=== PATIENT | male | born 1975 | race Caucasian/White ===

== ENCOUNTER → 2023-06-14 | Outpatient (CLI) | payer OTHER ==
--- NOTE | 2023-06-14 14:39 | FL ---
INDICATION: Patient age:Male; 47 years old; Reason for study: M25.551 PAIN IN RIGHT HIP; PHH. COMPARISON: None. TECHNIQUE/PROCEDURE: This study was performed by myself. After the procedure was explained and informed consent was obtained from the patient, the patient was prepped and draped in the usual sterile fashion. 1% Lidocaine was used as local anesthetic using a 2 5 gauge needle. A 22 gauge needle was then advanced into the right hip joint using fluoroscopic raymond nce. Approximately 15 cc of contrast was injected into the joint (an admixture of gadolinium, Isovue 370, and sterile saline). The needle was then removed and a Band-Aid was applied. FLUOROSCOPY TIME: 23 seconds FLUOROSCOPIC IMAGES: 2 images. Total DAP cannot be calculated due to how old the machine is. The patient tolerated procedure well. The patient was then sent to the MR unit for MRI exam. FINDINGS: Contrast was seen filling the right hip joint initially. Small amount of extracapsular con trast was noted. The hip joint was normally aligned. Osseous structures appear within normal limits. IMPRESSION: Successful right hip arthrogram. MRI right hip report to follow.
== END | disposition home or self-care (01) ==
LOC: RADFLMAIN 12:55
PROVIDERS: ATTEND Social Worker Clinical
DX: M25.551 Pain in right hip (principal)
CPT/HCPCS: 27093; 73525; 73722; A9585; Q9967

== ENCOUNTER 2023-07-02 09:19 | Emergency (ER) | payer OTHER ==
[2023-07-02 10:02] VITALS: BP 146/100; PULSE 91; RESP 18; TEMP 98
--- NOTE | 2023-07-02 10:28 | ED ---
Neck Injury/Pain HPI - General Mode of arrival: ambulatory Limitations: no limitations <Paola Najera - Last Filed: 07/02/23 10:25> - General Source: RN notes reviewed <Cortney Moreno - Last Filed: 07/02/23 15:45> - General Chief Complaint: Neck Pain/Injury Stated Complaint: right arm pain and chest pain Time Seen by Provider: 07/02/23 10:27 - History of Present Illness Initial Comments: Patient is a 47-year-old male presented ER with chief complaint of cervical neck plane and right arm pain. Patient denies any known trauma/injuries. Reports shooting pain and weakness. (Paola Najera) This is a 47-year-old male with no significant past medical history who presents the emergency department with a chief complaint of neck pain. Patient reports pain that is charts in his upper neck that radiates down his right arm. He denies any injury or trauma. He does report that the sensation feels like pins and needles. He does feel like his right side is weaker than his left. He does not take tcar-zhz-nmdupjx remedies as he feels that it does not work for him. Denies previous injury. (Cortney Moreno) - Related Data Home Medications Medication Instructions Recorded Confirmed Cetirizine HCl [Zyrtec] 10 mg PO BID 07/02/23 07/02/23 Esomeprazole Magnesium [NexIUM] 40 mg PO BID 07/02/23 07/02/23 Glucosam/Francisco-Msm1/C/Yong/Bosw 1 tab PO BID 07/02/23 07/02/23 [Ukskbypxnne-Libwioyokcj-QMF Tb] Pregabalin [Lyrica] 150 mg PO BID 07/02/23 07/02/23 calcium polycarbophiL [Fibercon] 625 mg PO BID 07/02/23 07/02/23 Previous Rx's Medication Instructions Recorded Cyclobenzaprine [Flexeril] 10 mg PO TID PRN #15 tab 07/02/23 Allergies Allergy/AdvReac Type Severity Reaction Status Date / Time naproxen Allergy Rash/Hives Verified 07/02/23 13:44 Review of Systems ROS Other: All systems not noted in ROS Statement are negative. <Paola Najera - Last Filed: 07/02/23 10:25> ROS Other: All systems not noted in ROS Statement are negative. <Cortney Moreno - Last Filed: 07/02/23 15:45> ROS Statement: Those systems with pertinent positive or pertinent negative responses have been documented in the HPI. Past Medical History Past Medical History: No Reported History History of Any Multi-Drug Resistant Organisms: None Reported Additional Past Surgical History / Comment(s): Vesecatomy Past Psychological History: No Psychological Hx Reported Smoking Status: Current every day smoker Past Alcohol Use History: None Reported Past Drug Use History: None Reported <Paola Najera - Last Filed: 07/02/23 10:25> General Exam Limitations: no limitations <Paola Najera - Last Filed: 07/02/23 10:25> <Cortney Moreno - Last Filed: 07/02/23 15:45> - General Exam Comments Initial Comments: Visual Physical Exam Vital signs reviewed General: Well-appearing, nontoxic, no acute distress. Head: Normocephalic, atraumatic Eyes: PERRLA, EOMI ENT: Airway patent Chest: Nonlabored breathing Skin: No visual rash, normal skin tone Neuro: Alert and oriented 3 Musculoskeletal: No gross abnormalities (Paola Najera) General: Alert, in no acute distress Head: atraumatic normocephalic. Eyes PERRL, EOMI intact, mucous membranes moist, slight abrasion to cervical spine area. No step-off. Respiratory: Lungs clear to auscultation bilaterally Cardiovascular: Heart rate regular rhythm Abdominal: Soft without guarding or rebound Extremities: Normal inspection with full range of motion and normal capillary re fill. When directed strength 3/ 5. 5/ 5 strength when distracted. Sensation intact. 2+ radial pulses. Distal neurovascularly intact. Neuroogic: alert and oriented 3, CN II-XII intact, able to ambulate with steady gait Skin: warm dry and intact with normal color (Cortney Moreno) Course Vital Signs 07/02/23 09:35 Temperature 98 F Pulse Rate 91 Respiratory 18 Rate Blood Pressure 146/100 O2 Sat by Pulse 97 Oximetry Medical Decision Making <Paola Najera - Last Filed: 07/02/23 10:25> <Cortney Moreno - Last Filed: 07/02/23 15:45> - Medical Decision Making I performed the quick note portion of the exam. Electronically signed by Paola Najera PA-C (Paola Najera) Was pt. sent in by a medical professional or institution ([facility], [facility], urgent care, hospital, or halfway...) When possible be specific @ -[No] Did you speak to anyone other than the patient for history (EMS, parent, family, police, friend...)? What history was obtained from this source @ -[No] Did you review nursing and triage notes (agree or disagree)? Why? @ -[I reviewed and agree with nursing and triage notes] Were old charts reviewed (outside hosp., previous admission, EMS record, old EKG, old radiological studies, urgent care reports/EKG's, halfway records)? Report findings @ -[No old charts were reviewed] Differential Diagnosis (chest pain, altered mental status, abdominal pain women, abdominal pain men, vaginal bleeding, weakness, fever, dyspnea, syncope, headache, dizziness, GI bleed, back pain, seizure, CVA, palpatations, mental health, musculoskeletal)? @ -[not applicable] EKG interpreted by me (3pts min.). @ -[As above] X-rays interpreted by me (1pt min.). @ -Cervical spine x-ray and right shoulder x-ray negative for any evidence of fracture or dislocation. There is mild degeneration of the disc between C5 and C6 CT interpreted by me (1pt min.). @ -[None done] U/S interpreted by me (1pt. min.). @ -[None done] What testing was considered but not performed or refused? (CT, X-rays, U/S, labs)? Why? @ -[None] What meds were considered but not given or refused? Why? @ -[None] Did you discuss the management of the patient with other professionals ( professionals i.e. [facility], [facility], lab, RT, psych nurse, social research assistant, boat worker, teacher, aoc director intelligence officer, telephonic nurse case manager)? Give summary @ -[No] Was smoking cessation discussed for >3mins.? @ -[No] Was critical care preformed (if so, how long)? @ -[No] Were there social determinants of health that impacted care today? How? (Homelessness, low income, unemployed, alcoholism, drug addiction, transportation, low edu. Level, literacy, decrease access to med. care, fci, rehab)? @ -[No] Was there de-escalation of care discussed even if they declined (Discuss DNR or withdrawal of care, Hospice)? DNR status @ -[No] What co-morbidities impacted this encounter? (DM, HTN, Smoking, COPD, CAD, Cancer, CVA, ARF, Chemo, Hep., AIDS, mental health diagnosis, sleep apnea, morbid obesity)? @ -[None] Was patient admitted / discharged? Hospital course, mention meds given and route, prescriptions, significant lab abnormalities, going to OR and other pertinent info. @ Discharged. 47-year-old male who presents the emergency department with neck pain. She had a history and physical exam performed. Physical exam essentially unremarkable. There is a small area of skin breakdown around C7 otherwise unremarkable. Full range of motion. No step-off. Patient had imaging which was negative for fracture. Patient was given Toradol patch and Flexeril with symptomatic improvement. Return precautions were discussed at length. Patient discharged in stable condition. Case discussed with Dr. Sterling [facility] who agrees with plan of care Undiagnosed new problem with uncertain prognosis? @ -[No] Drug Therapy requiring intensive monitoring for toxicity (Heparin, Nitro, Insulin, Cardizem)? @ -[No] Were any procedures done? @ -[No] Diagnosis/symptom? @ -[default] Acute, or Chronic, or Acute on Chronic? @ -Neck Pain Uncomplicated (without systemic symptoms) or Complicated (systemic symptoms)? @ -Uncomplicated Side effects of treatment? @ -[No] Exacerbation, Progression, or Severe Exacerbation? @ -[No] Poses a threat to life or bodily function? How? (Chest pain, [place], [place], pneumonia, PE, COPD, DKA, ARF, appy, cholecystitis, CVA, Diverticulitis, Homicidal, Suicidal, threat to staff... and all critical care pts) @ -Low likelihood (Cortney Moreno) Disposition <Paola Najera - Last Filed: 07/02/23 10:25> Is patient prescribed a controlled substance at d/c from ED?: No Time of Disposition: 13:43 <Cortney Moreno - Last Filed: 07/02/23 15:45> Clinical Impression: Strain of neck muscle Disposition: HOME SELF-CARE Condition: Stable Instructions (If sedation given, give patient instructions): Cervical Strain (ED) Additional Instructions: Monitor symptoms closely Please return to the nearest emergency department if worsening symptoms Prescriptions: Cyclobenzaprine [Flexeril] 10 mg PO TID PRN #15 tab PRN Reason: Muscle Spasm Referrals: [facility] [Primary Care Provider] - 1-2 days
--- NOTE | 2023-07-02 10:57 | XR ---
EXAMINATION TYPE: XR cervical spine 6 views comp, XR shoulder complete 3 views RT DATE OF EXAM: 07/02/2023 COMPARISON: None HISTORY: 47-year-old male with neck pain radiating down into the right arm FINDINGS: Cervical spine: No predental space widening or prevertebral soft tissue swelling. Mild degenerative changes mid to lo wer cervical spine especially C5-C6. Straightening of the normal cervical lordosis but with preserved alignment. Normal odontoid view. No significant bony neuroforaminal narrowing identified on the obli que views. Right shoulder: AC joint appears congruent and intact. Subacromial space is preserved. No acute fracture, subluxation , dislocation. IMPRESSION: 1. Cervical spine: Mild spondylotic changes especially C5-C6. No significant bony neuroforaminal narr owing identified. Thickening of the normal cervical lordosis could be positional or due to muscle spa sm. 2. Right shoulder: No acute osseous abnormality seen.
[2023-07-02] MEDS ORDERED: CYCLOBENZAPRINE 10 MG TAB PO STA (12:07)
[2023-07-02] MEDS: LIDOCAINE 5% PATCH TOPICAL SCH ×2 (12:19→14:01)
[2023-07-02] MEDS ORDERED: LIDOCAINE 5% PATCH TOPICAL SCH (14:00)
== END 2023-07-02 14:06 | disposition home or self-care (01) ==
LOC: EC 09:19
DX: S16.1XXA Strain of muscle, fascia and tendon at neck level, initial encounter (principal); F17.200 Nicotine dependence, unspecified, uncomplicated; X58.XXXA Exposure to other specified factors, initial encounter
CPT/HCPCS: 72050; 99283

== ENCOUNTER → 2023-07-26 | Outpatient (CLI) | payer OTHER ==
--- NOTE | 2023-07-26 07:45 | MR ---
EXAMINATION TYPE: MR cervical spine wo con DATE OF EXAM: 07/26/2023 6:40 AM CLINICAL INDICATION:Male, 47 years old with history of M54.2 CERVICALGIA; PHH, Neck pain, lower cervi remington and upper thoracic. Headaches, BUE radiculopathy. COMPARISON: 07/02/2023.. TECHNIQUE: Multi planar, multi sequence imaging was performed utilizing: T1-weighted, T2-weighted, an d turbo inversion recovery imaging of the cervical spine. IV Contrast: cc (none if empty) FINDINGS: Alignment: The cervical vertebral bodies have preserved heights. Alignment is within normal limits gi alejandra patient positioning. Bones: Bone signal is within normal limits. No abnormal bone marrow edema on inversion recovery seque nces. Cord: The spinal cord is unremarkable with regards to their signal intensity and morphology. Discs: Multilevel disc desiccation is present. C2-C3: No significant disc pathology. The spinal canal is patent. No neural foraminal stenosis. C3-C4: No significant disc pathology. The spinal canal is patent. Bilateral facet and uncovertebral joint arthropathy are present with mild right neural foraminal stenosis. The left neural foramen is p atent. C4-C5: No significant disc pathology. The spinal canal is patent. Bilateral facet and uncovertebral joint arthropathy are present with moderate mild left neural foraminal stenosis. C5-C6: No significant disc pathology. The spinal canal is patent. No neural foraminal stenosis. C6-C7: No significant disc pathology. The spinal canal is patent. Bilateral facet and uncovertebral joint arthropathy are present with mild bilateral neural foraminal stenosis. C7-T1: No significant disc pathology. The spinal canal is patent. No neural foraminal stenosis. Other: None. IMPRESSION: 1. No evidence for disc herniation or significant spinal canal stenosis. 2. Mild disc degeneration with associated osteoarthritic changes.
== END | disposition home or self-care (01) ==
LOC: RADMRIMAIN 05:58
PROVIDERS: ATTEND Social Worker Clinical
DX: M50.10 Cervical disc disorder with radiculopathy, unspecified cervical region (principal); M47.22 Other spondylosis with radiculopathy, cervical region
CPT/HCPCS: 72141

== ENCOUNTER → 2023-10-07 | Outpatient (CLI) | payer OTHER ==
--- NOTE | 2023-10-07 09:43 | MR ---
EXAMINATION TYPE: MR lumbar spine wo con DATE OF EXAM: 10/07/2023 COMPARISON: NONE HISTORY: Low back pain into valentin lower extremities, urinary urgency TECHNIQUE: T1 and T2 axial and sagittal images of the lumbar spine are submitted. FINDINGS: There is no abnormal signal seen within the visualized spinal cord or paraspinal soft tissu es. Mild left adrenal gland nodularity to small characterize likely bases At L1-2 there is no evidence of degenerative disc disease, disc herniation, canal stenosis, or forami nal encroachment. At L2-3 there is no evidence of degenerative disc disease, disc herniation, canal stenosis, or forami nal encroachment At L3-4 there is no evidence of degenerative disc disease, disc herniation, canal stenosis, or forami nal encroachment At L4-5 there is mild disc desiccation. No discrete herniation or canal stenosis. Mild hypertrophic c hange since very minimal central disc bulging. At L5-S1 there is no evidence of degenerative disc disease, disc herniation, canal stenosis, or usman inal encroachment IMPRESSION: 1. Minimal disc bulging at L4-L5. No significant degenerative disc disease, canal stenosis, or forami nal encroachment.
== END | disposition home or self-care (01) ==
LOC: RADMRIMAIN 08:28
DX: M51.36 Other intervertebral disc degeneration, lumbar region (principal); R39.15 Urgency of urination
CPT/HCPCS: 72148

== ENCOUNTER → 2024-01-12 | Day surgery (SDC) | payer OTHER ==
[~2024-01-12] MED LIST: ONDANSETRON 4 MG/2 ML VIAL IVP PRN; PROPOFOL 10 MG/ML 20 ML VIAL IV ONE
[2024-01-12] MEDS: LIDOCAINE 1% (10MG/ML) FOR IV START INTRADERMA PRN (09:49)
[2024-01-12] MEDS: LACTATED RINGERS 1,000 ML IV SCH (09:49)
[2024-01-12 09:53] VITALS: TEMP 97.9
--- NOTE | 2024-01-12 10:58 | P.PCN ---
Date of Procedure: 01/12/24 Procedure(s) Performed: BRIEF HISTORY: Patient is a 48-year-old pleasant 24 male scheduled for an elective colonoscopy as a part of screening for colon cancer. PROCEDURE PERFORMED: Colonoscopy. PREOPERATIVE DIAGNOSIS: Screening for colon cancer. IV sedation per Anesthesia. PROCEDURE: After informed consent was obtained, the patient, was brought into the endoscopy unit. IV sedation was administered by Anesthesia under continuous monitoring. Digital rectal examination was normal. Initially the Olympus CF-160 flexible video colonoscope was then inserted in the rectum, gradually advanced into the cecum without any difficulty. Careful examination was performed as the scope was gradually being withdrawn. Ileocecal valve and the appendiceal orifice were visualized and appeared normal. Prep was excellent. Mucosa of the cecum, ascending colon, transverse colon, descending colon, sigmoid colon, and rectum appeared normal. Scattered sigmoid diverticulosis. Retroflexion was performed in the rectum and no lesions were seen. The patient tolerated the procedure well. IMPRESSION: Normal-appearing colon from rectum to cecum no evidence of colorectal neoplasia. Scattered sigmoid diverticulosis. RECOMMENDATIONS: Findings of this examination were discussed with the patient as well as his family. He was advised to have repeat screening colonoscopy in 10 years..
[2024-01-12 11:43] VITALS: BP 127/89; PULSE 80; RESP 18
== END ==
LOC: ORWHC2ENDO 08:58
PROVIDERS: ATTEND Internal Medicine Gastroenterology
DX: Z12.11 Encounter for screening for malignant neoplasm of colon (principal); K57.30 Diverticulosis of large intestine without perforation or abscess without bleeding; J45.909 Unspecified asthma, uncomplicated; G89.29 Other chronic pain; F41.9 Anxiety disorder, unspecified; F31.9 Bipolar disorder, unspecified; M79.7 Fibromyalgia; K21.9 Gastro-esophageal reflux disease without esophagitis; Z86.010 Personal history of colon polyps; Z79.51 Long term (current) use of inhaled steroids; Z79.1 Long term (current) use of non-steroidal anti-inflammatories (NSAID); Z79.899 Other long term (current) drug therapy; Z88.6 Allergy status to analgesic agent
CPT/HCPCS: 45378; J2704

== ENCOUNTER → 2024-02-28 | Outpatient (CLI) | payer OTHER ==
[2024-02-28 09:40] VITALS: BP 140/88; PULSE 81; RESP 16; TEMP 98.4
--- NOTE | 2024-02-28 15:08 | P.PAINPG ---
PQRS Measure Charge Sheet Comment: HISTORY OF PRESENT ILLNESS: A 48 yr old male as a referral from the [facility] presents today w severe and R Hip pain > 6 mo secondary to DJD for evaluation. Pt states pain level is provoked at 7 /10 in intensity, constant, localized in the R hip, predominantly axial, achy in character without shooting pain . Pain is provoked by weight bearing activity or cold weather. Pain is alleviated by intra articular injections in the past, water massage weekly since 2022, heat, medications (Lyrica, Ibu), topical Icy-Hot, repositioning and rest . PMH: OA, BPH PSH: Vasectomy, Colonoscopy (2023) SH: Daily tobacco use, No ETOH abuse, No illicit drug use FH: Non contributory All: See list Meds: See list REVIEW OF ORGAN SYSTEMS: CONSTITUTIONAL: No fevers or chills. No recent weight loss. NEUROLOGICAL: + numbness and tingling along the distal extremities. No seizure disorders or headaches. MUSCULOSKELETAL: + pain PSYCHIATRIC: Denies current depression or suicidal thoughts. Physical Examinations : Constitutional : Cooperative , not in acute distress . Neurologic : Cranial nerve II to XII intact. No focal neurological deficits. Psychiatric : alert & oriented x 3. Matching mood & appropriate affect. Judgment & insight intact. Musculoskeletal : Cervical Spine Motor strength in the deltoid and biceps: Normal right side. Normal Left side Motor strength biceps and the wrist extensors: Normal right side . Normal left side Motor strength in the triceps muscle: Normal right side. Normal left side Deep tendon reflexes: Normal at the biceps. Normal at Brachioradialis. Normal at triceps Vertebral body tenderness to deep palpation over Cervical facet loading test: positive bilaterally Spurling test: positive bilaterally Neck distraction test: positive bilaterally Marely sign: positive bilaterally Lumbar spine +R hip diffuse TTP, +R Trendelenburg Motor strength lower extremities ,thigh and legs 5/5 Right side , 5/5 Left side Deep tendon reflexes : Normal Knee Jerk. Normal Ankle Jerk Vertebral body tenderness over Kelly Test positive Lumbar facet Loading Test: positive Right / positive Left Range of motion of the lumbar spine Flexion 30 degrees, extension 10 degrees Straight Leg Raise test: Left/ Right positive at degrees Mark test: positive right / positive left. Severe tenderness over the Sacroiliac joint on the Right / Left sides Gaenslen test: positive bilaterally Seated flexion test: positive bilaterally. Sacral spine : Severe tenderness over the Sacroiliac joint: right side / left side Range of motion: Flexion of the lumbar spine <60 degrees Range of motion: Extension of the lumbar spine <20 degrees Gaenslen's Test positive Mark test: positive right side / left side Thigh Thrust Test Sacral Thrust Test Imaging: MRI non contrast of the cervical spine from 07/26/23 reviewed MRI non contrast of the R hip from May 2023 reviewed Assessment/ Plan : Cervical DDD Recommendation of medication management and follow up w orthopedic surgeon to explore additional treatment options. [place] 7.5/325mg #90 w 1 RF. Opiate/ narcotic agreement signed 02/28/24. All questions answered. I have spent greater than 30 minutes on patient care today. Dr Powell was available by phone for the evaluation of this patient. The time was used to review the medical records including relevant urine studies and Prescription history (MAPs), review of the available imaging, evaluation and examination of the patient, coordination of care with the medical staff and if applicable referring physicians, as well as creation of the medical record Home Medications: Ambulatory Orders Cetirizine HCl [Zyrtec] 10 mg PO QAM 07/02/23 Esomeprazole Magnesium [NexIUM] 40 mg PO BID 07/02/23 Pregabalin [Lyrica] 150 mg PO BID 07/02/23 Albuterol Inhaler [Ventolin Hfa Inhaler] 2 puff INHALATION Q4H PRN 01/07/24 Ibuprofen 800 mg PO BID PRN 01/07/24 Oxybutynin Chloride [oxyBUTYnin chloride ER] 15 mg PO BID 01/07/24 Tamsulosin [Flomax] 0.4 mg PO HS 01/07/24 Controlled Substance Measures - Controlled Substance Measures Is patient prescribed a controlled substance at discharge?: Yes When asked, does pt state using other controlled substances?: Yes If prescribed controlled substance>3 days was MAPS reviewed?: Yes If Rx opioid, was Start Talking consent form obtained?: Yes Was information provided regarding opioid addiction?: Yes
== END ==
LOC: PNWHC3 08:58
PROVIDERS: ATTEND Specialist
DX: M50.30 Other cervical disc degeneration, unspecified cervical region (principal); F17.200 Nicotine dependence, unspecified, uncomplicated; Z88.6 Allergy status to analgesic agent
CPT/HCPCS: 99211

== ENCOUNTER → 2024-04-27 | Outpatient (CLI) | payer OTHER ==
[2024-04-27 10:25] VITALS: BP 114/74; PULSE 103; RESP 20
--- NOTE | 2024-04-27 14:13 | P.PAINPG ---
PQRS Measure Charge Sheet Comment: HISTORY OF PRESENT ILLNESS: A 48 yr old male presents today w severe and R Hip pain > 6 mo secondary to DJD for evaluation. Pt states pain level is provoked at 7 /10 in intensity, constant, localized in the R hip, predominantly axial, achy in character without shooting pain . Pain is provoked by weight bearing activity or cold weather. Pain is alleviated by intra articular injections in the past, water massage weekly since 2022, heat, medications, topical Icy-Hot, use of a cane for ambulatory assistance, repositioning and rest . He was referred to an Orthopedic Surgeon in [place], but will go through his PCP to find a local Orthopedic Surgeon for his hip. Interventional procedures include Medications include [place] 7.5/325mg #90, Ibu, Lyrica 150mg #60 REVIEW OF ORGAN SYSTEMS: CONSTITUTIONAL: No fevers or chills. No recent weight loss. NEUROLOGICAL: + numbness and tingling along the distal extremities. No seizure disorders or headaches. MUSCULOSKELETAL: + pain PSYCHIATRIC: Denies current depression or suicidal thoughts. Physical Examinations : Constitutional : Cooperative , not in acute distress . Neurologic : Cranial nerve II to XII intact. No focal neurological deficits. Psychiatric : alert & oriented x 3. Matching mood & appropriate affect. Judgment & insight intact. Musculoskeletal : Cervical Spine Motor strength in the deltoid and biceps: Normal right side. Normal Left side Motor strength biceps and the wrist extensors: Normal right side . Normal left side Motor strength in the triceps muscle: Normal right side. Normal left side Deep tendon reflexes: Normal at the biceps. Normal at Brachioradialis. Normal at triceps Vertebral body tenderness to deep palpation over Cervical facet loading test: positive bilaterally Spurling test: positive bilaterally Neck distraction test: positive bilaterally Marely sign: positive bilaterally Lumbar spine +R hip diffuse TTP, +R Trendelenburg Motor strength lower extremities ,thigh and legs 5/5 Right side , 5/5 Left side Deep tendon reflexes : Normal Knee Jerk. Normal Ankle Jerk Vertebral body tenderness over Kelly Test positive Lumbar facet Loading Test: positive Right / positive Left Range of motion of the lumbar spine Flexion 30 degrees, extension 10 degrees Straight Leg Raise test: Left/ Right positive at degrees Mark test: positive right / positive left. Severe tenderness over the Sacroiliac joint on the Right / Left sides Gaenslen test: positive bilaterally Seated flexion test: positive bilaterally. Sacral spine : Severe tenderness over the Sacroiliac joint: right side / left side Range of motion: Flexion of the lumbar spine <60 degrees Range of motion: Extension of the lumbar spine <20 degrees Gaenslen's Test positive Mark test: positive right side / left side Thigh Thrust Test Sacral Thrust Test Imaging: MRI non contrast of the cervical spine from 07/26/23 reviewed MRI non contrast of the R hip from May 2023 reviewed Assessment/ Plan : Cervical DDD Recommendation of medication management and follow up w orthopedic surgeon to explore additional treatment options. [place] 7.5/325mg #90 w 1 RF. UDS collected 04/27/24. Opiate/ narcotic agreement signed 02/28/24. All questions answered. I have spent greater than 30 minutes on patient care today. Dr Powell was available by phone for the evaluation of this patient. The time was used to review the medical records including relevant urine studies and Prescription history (MAPs), review of the available imaging, evaluation and examination of the patient, coordination of care with the medical staff and if applicable referring physicians, as well as creation of the medical record PQRS Narrative: Narcotic Agreement Date Signed 02/28/24 Hx Alcohol Use (MH) No Home Medications: Ambulatory Orders Cetirizine HCl [Zyrtec] 10 mg PO QAM 07/02/23 Esomeprazole Magnesium [NexIUM] 40 mg PO BID 07/02/23 Pregabalin [Lyrica] 150 mg PO BID 07/02/23 Albuterol Inhaler [Ventolin Hfa Inhaler] 2 puff INHALATION Q4H PRN 01/07/24 Ibuprofen 800 mg PO BID PRN 01/07/24 Oxybutynin Chloride [oxyBUTYnin chloride ER] 15 mg PO BID 01/07/24 Tamsulosin [Flomax] 0.4 mg PO HS 01/07/24 HYDROcodone/APAP 7.5-325MG [[place] 7.5-325] 1 tab PO TID PRN 30 Days #90 tab 03/09/24 HYDROcodone/APAP 7.5-325MG [[place] 7.5-325] 1 tab PO TID PRN 30 Days #90 tab 03/09/24 Controlled Substance Measures - Controlled Substance Measures Is patient prescribed a controlled substance at discharge?: Yes When asked, does pt state using other controlled substances?: Yes If prescribed controlled substance>3 days was MAPS reviewed?: Yes
== END ==
LOC: PNWHC3 09:08
PROVIDERS: ATTEND Specialist
DX: G89.4 Chronic pain syndrome
CPT/HCPCS: 80307; 99211

== ENCOUNTER → 2024-06-16 | Day surgery (SDC) | payer OTHER ==
[~2024-06-16] MED LIST changes: +LIDOCAINE 1% INJ 10MG/ML (20 ML MDV) ONE; -ONDANSETRON 4 MG/2 ML VIAL IVP PRN
[2024-06-16 11:48] VITALS: TEMP 97.3
[2024-06-16] MEDS: IV FLUID CONTINUATION 1,000 ML IV ONE ×2 (12:02→13:21)
[2024-06-16] MEDS: LACTATED RINGERS 1,000 ML IV SCH (12:03)
--- NOTE | 2024-06-16 13:19 | P.PCN ---
Date of Procedure: 06/16/24 Procedure(s) Performed: BRIEF HISTORY: Patient is a 48-year-old, pleasant, white female scheduled for an upper endoscopy as a part of evaluation of + history of GERD and intermittent dysphagia to solids.. PROCEDURE PERFORMED: Esophagogastroduodenoscopy with biopsy. PREOPERATIVE DIAGNOSIS: GERD/intermittent dysphagia to solids. IV sedation per anesthesia. PROCEDURE: After informed consent was obtained, the patient was brought into the endoscopy unit. IV sedation was administered by Anesthesia under continuous monitoring. Initially the Olympus GIF-140 video endoscope was inserted into the mouth. Esophagus intubated without any difficulty. It was gradually advanced into the stomach and duodenum and carefully examined. The bulb and the second part of the duodenum appeared normal. The scope at this time was withdrawn to the stomach, adequately insufflated with air, and upon careful examination, mucosa of the antrum, and mild gastritis and biopsies were done from this area. Mucosa body, cardia and the fundus appeared normal. The scope was then withdrawn into the esophagus. The GE junction was located at 41 cm frothe incisors. The esophagus appeared normal. There were no erosions or ulcerations seen. No evidence of esophageal stricture. Biopsies were done from the distal esophagus and the patient tolerated the procedure well. IMPRESSION: 1. Normal-appearing esophagus with no evidence of esophagitis or esophageal stricture. 2. Mild antral gastritis. RECOMMENDATIONS: The findings of this examination were discussed with the patient as well as his family. He was advised to follow-up with the biopsy results. Continue with esomeprazole 40 mg twice daily and follow antireflux measures.
[2024-06-16 13:24] VITALS: RESP 18
[2024-06-16 13:54] VITALS: BP 118/73; PULSE 74
== END ==
LOC: ORWHC2ENDO 10:31
PROVIDERS: ATTEND Internal Medicine Gastroenterology
DX: K29.50 Unspecified chronic gastritis without bleeding (principal); K21.00 Gastro-esophageal reflux disease with esophagitis, without bleeding; Z79.899 Other long term (current) drug therapy
CPT/HCPCS: 88305; 43239; J2003; J2704

== ENCOUNTER → 2024-06-22 | Outpatient (CLI) | payer OTHER ==
[2024-06-22 09:23] VITALS: BP 121/80; PULSE 95; RESP 16
--- NOTE | 2024-06-22 14:54 | P.PAINPG ---
PQRS Measure Charge Sheet Comment: HISTORY OF PRESENT ILLNESS: A 48 yr old male presents today w severe and R Hip pain > 6 mo secondary to DJD for evaluation. Pt states pain level is provoked at 7 /10 in intensity, constant, localized in the R hip, predominantly axial, achy in character without shooting pain . Pain is provoked by weight bearing activity or cold weather. Pain is alleviated by intra articular injections in the past, water massage weekly since 2022, heat, medications, topical Icy-Hot, use of a cane for ambulatory assistance, repositioning and rest . [facility] whom told him there is a small tear in the R hip joint and would not need surgery. Urged pt to cooperate with narcotic agreement and only obtain [place] from this clinic. Per MAPS, he received [place] #[address] Brandon Colunga on 05/26/24. Interventional procedures include Medications include [place] 7.5/325mg #90, Ibu, Lyrica 150mg #60 REVIEW OF ORGAN SYSTEMS: CONSTITUTIONAL: No fevers or chills. No recent weight loss. NEUROLOGICAL: + numbness and tingling along the distal extremities. No seizure disorders or headaches. MUSCULOSKELETAL: + pain PSYCHIATRIC: Denies current depression or suicidal thoughts. Physical Examinations : Constitutional : Cooperative , not in acute distress . Neurologic : Cranial nerve II to XII intact. No focal neurological deficits. Psychiatric : alert & oriented x 3. Matching mood & appropriate affect. Judgment & insight intact. Musculoskeletal : Cervical Spine Motor strength in the deltoid and biceps: Normal right side. Normal Left side Motor strength biceps and the wrist extensors: Normal right side . Normal left side Motor strength in the triceps muscle: Normal right side. Normal left side Deep tendon reflexes: Normal at the biceps. Normal at Brachioradialis. Normal at triceps Vertebral body tenderness to deep palpation over Cervical facet loading test: positive bilaterally Spurling test: positive bilaterally Neck distraction test: positive bilaterally Marely sign: positive bilaterally Lumbar spine +R hip diffuse TTP, +R Trendelenburg Motor strength lower extremities ,thigh and legs 5/5 Right side , 5/5 Left side Deep tendon reflexes : Normal Knee Jerk. Normal Ankle Jerk Vertebral body tenderness over Kelly Test positive Lumbar facet Loading Test: positive Right / positive Left Range of motion of the lumbar spine Flexion 30 degrees, extension 10 degrees Straight Leg Raise test: Left/ Right positive at degrees Mark test: positive right / positive left. Severe tenderness over the Sacroiliac joint on the Right / Left sides Gaenslen test: positive bilaterally Seated flexion test: positive bilaterally. Sacral spine : Severe tenderness over the Sacroiliac joint: right side / left side Range of motion: Flexion of the lumbar spine <60 degrees Range of motion: Extension of the lumbar spine <20 degrees Gaenslen's Test positive Mark test: positive right side / left side Thigh Thrust Test Sacral Thrust Test Imaging: MRI non contrast of the cervical spine from 07/26/23 reviewed MRI non contrast of the R hip from May 2023 reviewed Assessment/ Plan : Cervical radiculopathy, R Hip DJD Recommendation of medication management and follow up w orthopedic surgeon to explore additional treatment options. [place] 7.5/325mg #90 w 1 RF. UDS from 04/27/24 reviewed and consistent. Opiate/ narcotic agreement signed 02/28/24. Urged pt to cooperate with narcotic agreement and only obtain [place] from this clinic. Per MAPS, he received [place] #[address] Brandon Colunga on 05/26/24. All questions answered. I have spent greater than 30 minutes on patient care today. Dr Powell was available by phone for the evaluation of this patient. The time was used to review the medical records including relevant urine studies and Prescription history ([facility]), review of the available imaging, evaluation and examination of the patient, coordination of care with the medical staff and if applicable ref erring physicians, as well as creation of the medical record - Pain Location Generalized Pharmacological Interventions: Scheduled Medication PQRS Narrative: Narcotic Agreement Date Signed 02/28/24 Hx Alcohol Use (MH) No Home Medications: Ambulatory Orders Cetirizine HCl [Zyrtec] 10 mg PO QAM 07/02/23 Esomeprazole Magnesium [NexIUM] 40 mg PO BID 07/02/23 Pregabalin [Lyrica] 150 mg PO BID 07/02/23 Albuterol Inhaler [Ventolin Hfa Inhaler] 2 puff INHALATION Q4H PRN 01/07/24 Ibuprofen 800 mg PO BID PRN 01/07/24 Oxybutynin Chloride [oxyBUTYnin chloride ER] 15 mg PO BID 01/07/24 Tamsulosin [Flomax] 0.4 mg PO HS 01/07/24 Cinnamon Bark [Cinnamon] 500 mg PO DAILY 06/14/24 Psyllium Husk [Fiber Capsule] 1 tab PO BID 06/14/24 HYDROcodone/APAP 7.5-325MG [[place] 7.5-325] 1 tab PO TID PRN 30 Days #90 tab 06/22/24 HYDROcodone/APAP 7.5-325MG [[place] 7.5-325] 1 tab PO TID PRN 30 Days #90 tab 06/22/24 Controlled Substance Measures - Controlled Substance Measures Is patient prescribed a controlled substance at discharge?: Yes When asked, does pt state using other controlled substances?: Yes If prescribed controlled substance>3 days was MAPS reviewed?: Yes
== END ==
LOC: PNWHC3 09:07
PROVIDERS: ATTEND Specialist
DX: M16.11 Unilateral primary osteoarthritis, right hip (principal); M54.12 Radiculopathy, cervical region; Z88.8 Allergy status to other drugs, medicaments and biological substances
CPT/HCPCS: 99211

== ENCOUNTER → 2024-08-17 | Outpatient (CLI) | payer OTHER ==
--- NOTE | 2024-08-17 12:09 | US ---
EXAMINATION TYPE: US scrotum with doppler. DATE OF EXAM: 08/17/2024 COMPARISON: NONE CLINICAL INDICATION: Male, 49 years old with history of K40.20 BI INGUINAL HERNIA, W/O OBST OR GANGRE NE, N; TECHNIQUE: Grayscale, color Doppler and spectral Doppler imaging of the scrotum. FINDINGS: EXAM MEASUREMENTS: TESTICLES: Right Testicle: 4.4 x 1.9 x 3.1 cm Left Testicle: 4.7 x 2.2 x 3.1 cm EPIDIDYMIS HEAD: Right Epididymis: 1.5 cm Left Epididymis: 1.4 cm Doppler performed to assess for testicular vascularity; good bilateral color flow and spectral wavefo raghavendra are seen. There is no evidence of testicular torsion. Presence of hydroceles: left - 3.4cm Presence of varicoceles: no Right groin: appears wnl Left groin: appears wnl IMPRESSION: 1. No evidence of testicular torsion or mass. 2. Left hydrocele with internal debris. 3. No ultrasound evidence for inguinal hernia. [facility], , 08/17/2024 12:07 PM
== END | disposition home or self-care (01) ==
LOC: RADUSWWP 07:25
PROVIDERS: ATTEND Family Medicine
DX: K40.20 Bilateral inguinal hernia, without obstruction or gangrene, not specified as recurrent (principal); N43.3 Hydrocele, unspecified
CPT/HCPCS: 76870; 93975

== ENCOUNTER → 2024-08-17 | Outpatient (CLI) | payer OTHER ==
[2024-08-17 09:27] VITALS: BP 121/77; PULSE 86; RESP 19; TEMP 98
--- NOTE | 2024-08-17 13:35 | P.PAINPG ---
Objective - Vital Signs Vital signs: Intake & Output 08/16/24 08/17/24 08/17/24 18:59 06:59 18:59 Weight 170 kg PQRS Measure Charge Sheet Comment: HISTORY OF PRESENT ILLNESS: A 49 yr old male presents today w severe and R Hip pain > 6 mo secondary to DJD for medication refills. Pt states pain level is provoked at 8-9 /10 in intensity, constant, localized in the R hip, predominantly axial, achy in character without shooting pain. Pain is provoked by weight bearing activity or cold weather. Pain is alleviated by intra articular injections in the past, water massage weekly since 2022, heat, medications, topical Icy-Hot, use of a cane for ambulatory assistance, repositioning and rest . [facility] whom told him there is a small tear in the R hip joint and would not need surgery. Per MAPS, he received [place] #[address] Brandon Colunga on 05/26/24 and was urged to cooperate w narcotic agreement and only obtain narcotics from this clinic. Interventional procedures include Medications include [place] 7.5/325mg #90, Ibu, Lyrica 150mg #60 REVIEW OF ORGAN SYSTEMS: CONSTITUTIONAL: No fevers or chills. No recent weight loss. NEUROLOGICAL: + numbness and tingling along the distal ex tremities. No seizure disorders or headaches. MUSCULOSKELETAL: + pain PSYCHIATRIC: Denies current depression or suicidal thoughts. Physical Examinations : Constitutional : Cooperative , not in acute distress . Neurologic : Cranial nerve II to XII intact. No focal neurological deficits. Psychiatric : alert & oriented x 3. Matching mood & appropriate affect. Judgment & insight intact. Musculoskeletal : Cervical Spine Motor strength in the deltoid and biceps: Normal right side. Normal Left side Motor strength biceps and the wrist extensors: Normal right side . Normal left side Motor strength in the triceps muscle: Normal right side. Normal left side Deep tendon reflexes: Normal at the biceps. Normal at Brachioradialis. Normal at triceps Vertebral body tenderness to deep palpation over Cervical facet loading test: positive bilaterally Spurling test: positive bilaterally Neck distraction test: positive bilaterally Marely sign: positive bilaterally Lumbar spine +R hip diffuse TTP, +R Trendelenburg Motor strength lower extremities ,thigh and legs 5/5 Right side , 5/5 Left side Deep tendon reflexes : Normal Knee Jerk. Normal Ankle Jerk Vertebral body tenderness over Kelly Test positive Lumbar facet Loading Test: positive Right / positive Left Range of motion of the lumbar spine Flexion 30 degrees, extension 10 degrees Straight Leg Raise test: Left/ Right positive at degrees Mark test: positive right / positive left. Severe tenderness over the Sacroiliac joint on the Right / Left sides Gaenslen test: positive bilaterally Seated flexion test: positive bilate rally. Sacral spine : Severe tenderness over the Sacroiliac joint: right side / left side Range of motion: Flexion of the lumbar spine <60 degrees Range of motion: Extension of the lumbar spine <20 degrees Gaenslen's Test positive Mark test: positive right side / left side Thigh Thrust Test Sacral Thrust Test Imaging: MRI non contrast of the cervical spine from 07/26/23 reviewed MRI non contrast of the R hip from May 2023 reviewed Assessment/ Plan : Cervical radiculopathy, R Hip DJD Recommendation of medication management and follow up w orthopedic surgeon to explore additional treatment options. [place] 7.5/325mg #90 w 1 RF. UDS from 04/27/24 reviewed and consistent. Opiate/ narcotic agreement signed 02/28/24. All questions answered. I have spent greater than 30 minutes on patient care today. Dr Powell was available by phone for the evaluation of this patient. The time was used to review the medical records including relevant urine studies and Prescription history (MAPs), review of the available imaging, evaluation and examination of the patient, coordination of care with the medical staff and if applicable referring physicians, as well as creation of the medical record - Pain Location Generalized Non-Pharmacological Interventions: Heat, Massage PQRS Narrative: Narcotic Agreement Date Signed 02/28/24 Hx Alcohol Use (MH) No Home Medications: Ambulatory Orders Cetirizine HCl [Zyrtec] 10 mg PO QAM 07/02/23 Esomeprazole Magnesium [NexIUM] 40 mg PO BID 07/02/23 Pregabalin [Lyrica] 150 mg PO BID 07/02/23 Albuterol Inhaler [Ventolin Hfa Inhaler] 2 puff INHALATION Q4H PRN 01/07/24 Ibuprofen 800 mg PO BID PRN 01/07/24 Oxybutynin Chloride [oxyBUTYnin chloride ER] 15 mg PO BID 01/07/24 Tamsulosin [Flomax] 0.4 mg PO HS 01/07/24 Cinnamon Bark [Cinnamon] 500 mg PO DAILY 06/14/24 Psyllium Husk [Fiber Capsule] 1 tab PO BID 06/14/24 HYDROcodone/APAP 7.5-325MG [[place] 7.5-325] 1 tab PO TID PRN 30 Days #90 tab 08/17/24 HYDROcodone/APAP 7.5-325MG [[place] 7.5-325] 1 tab PO TID PRN 30 Days #90 tab 08/17/24 Controlled Substance Measures - Controlled Substance Measures Is patient prescribed a controlled substance at discharge?: Yes When asked, does pt state using other controlled substances?: No If prescribed controlled substance>3 days was MAPS reviewed?: Yes
== END ==
LOC: PNWHC3 08:35
PROVIDERS: ATTEND Specialist
DX: M54.12 Radiculopathy, cervical region (principal); M25.851 Other specified joint disorders, right hip; Z88.8 Allergy status to other drugs, medicaments and biological substances
CPT/HCPCS: 99211

== ENCOUNTER 2024-12-09 07:17 | Emergency (ER) | payer OTHER ==
[2024-12-09 07:24] VITALS: TEMP 98.8
[2024-12-09] MEDS: LACTATED RINGERS 1,000 ML IV ONE (07:43)
[2024-12-09] MEDS: ONDANSETRON 4 MG/2 ML VIAL IVP STA (07:44)
[2024-12-09] MEDS: HYDROmorphone 0.5 MG/0.5 ML SYRINGE IVP STA (07:44)
[2024-12-09 07:50] LABS: Basophils # (A) 0.04 10*3/uL (0.00-0.10); Basophils % (A) 0.4 %; Eosinophils # (A) 0.12 10*3/uL (0.04-0.35); Eosinophils % (A) 1.2 %; HCT 41.1 % (39.6-50.0); HGB 14.3 g/dL (13.0-17.0); Lymphocytes # (A) 1.44 10*3/uL (0.90-5.00); Lymphocytes % (A) 13.9 %; MCH 29.7 pg (27.0-32.0); MCHC 34.8 g/dL (32.0-37.0); MCV 85.4 fL (80.0-97.0); Monocytes # (A) 0.74 10*3/uL (0.20-1.00); Monocytes % (A) 7.1 %; Neutrophils # (A) 8.01 10*3/uL (1.80-7.70); Neutrophils % (A) 77.1 %; Platelet Count 236 10*3/uL (140-440); RBC 4.81 10*6/uL (4.40-5.60); RDW 12.1 % (11.5-14.5); WBC 10.38 10*3/uL (4.50-10.00)
--- NOTE | 2024-12-09 07:51 | ED ---
Abdominal Pain HPI - General Chief Complaint: Abdominal Pain Stated Complaint: Abd pain Time Seen by Provider: 12/09/24 07:20 Source: patient, EMS, RN notes reviewed Mode of arrival: EMS Limitations: no limitations - History of Present Illness Initial Comments: This is a 49-year-old male who presents to the emergency department for abdominal pain. Patient reports right upper quadrant abdominal pain for the last 24 hours. Reports associated nausea and vomiting. Denies any fevers or chills or changes in bowel/bladder habits. States that the pain has essentially been constant. He has tried taking [id number] pain medication, acid reflux medication, and Gas-X without any relief. Denies any history of gallstones or similar symptoms in the past. Before the pain began states that he was eating sushi, [employer], and skittles Gummies. MD Complaint: abdominal pain - Related Data Home Medications Medication Instructions Recorded Confirmed Cetirizine HCl [Zyrtec] 10 mg PO QAM 07/02/23 06/16/24 Esomeprazole Magnesium [NexIUM] 40 mg PO BID 07/02/23 06/16/24 Pregabalin [Lyrica] 150 mg PO BID 07/02/23 06/16/24 Albuterol Inhaler [Ventolin Hfa 2 puff INHALATION Q4H PRN 01/07/24 06/16/24 Inhaler] Ibuprofen 800 mg PO BID PRN 01/07/24 06/16/24 Oxybutynin Chloride [oxyBUTYnin 15 mg PO BID 01/07/24 06/16/24 chloride ER] Tamsulosin [Flomax] 0.4 mg PO HS 01/07/24 06/16/24 Cinnamon Bark [Cinnamon] 500 mg PO DAILY 06/14/24 06/16/24 Psyllium Husk [Fiber Capsule] 1 tab PO BID 06/14/24 06/16/24 Previous Rx's Medication Instructions Recorded HYDROcodone/APAP 7.5-325MG [Millry 1 tab PO TID PRN 30 Days #90 tab 08/17/24 7.5-325] HYDROcodone/APAP 7.5-325MG [Millry 1 tab PO TID PRN 30 Days #90 tab 08/17/24 7.5-325] Ketorolac [Toradol] 10 mg PO Q6HR PRN #15 tab 12/09/24 Ondansetron Odt [Zofran Odt] 4 mg PO Q8HR PRN #20 tab 12/09/24 Allergies Allergy/AdvReac Type Severity Reaction Status Date / Time naproxen Allergy Rash/Hives Verified 06/16/24 11:42 Review of Systems ROS Statement: Those systems with pertinent positive or pertinent negative responses have been documented in the HPI. ROS Other: All systems not noted in ROS Statement are negative. Past Medical History Past Medical History: Asthma, Fibromyalgia, GERD/Reflux Additional Past Medical History / Comment(s): hx. colon polyps. Chronic pain, bladder issues/frequency/dripping. History of Any Multi-Drug Resistant Organisms: None Reported Additional Past Surgical History / Comment(s): Vasectomy, EGD/colonoscopy Past Anesthesia/Blood Transfusion Reactions: No Reported Reaction Additional Past Anesthesia/Blood Transfusion Reaction / Comment(s): Pt has never had general anesthesia. Past Psychological History: Anxiety, Bipolar, Depression Additional Psychological History / Comment(s): Pt resides alone. Uses cane if out and about. Smoking Status: Former smoker, Vaper Past Alcohol Use History: None Reported Additional Past Alcohol Use History / Comment(s): Pt started smoking at age 16, switched to vaping nicotine. Quit smoking cigarettes 2015. Past Drug Use History: None Reported - Past Family History Father Family Medical History: Diabetes Mellitus, Myocardial Infarction ([place]) Mother Family Medical History: No Reported History General Exam Limitations: no limitations General appearance: alert, in no apparent distress Head exam: Present: atraumatic, normocephalic, normal inspection Respiratory exam: Present: normal lung sounds bilaterally. Absent: respiratory distress, wheezes, rales, rhonchi, stridor Cardiovascular Exam: Present: regular rate, normal rhythm GI/Abdominal exam: Present: soft, tenderness (RUQ), normal bowel sounds. Absent: distended Neurological exam: Present: alert, oriented X3, CN II-XII intact Psychiatric exam: Present: normal affect, normal mood Skin exam: Present: warm, dry, intact, normal color. Absent: rash Course Vital Signs 12/09/24 12/09/24 12/09/24 07:18 07:47 09:34 Temperature 98.8 F Pulse Rate 84 74 78 Respiratory 16 20 16 Rate Blood Pressure 135/93 132/94 106/71 O2 Sat by Pulse 98 98 97 Oximetry 12/09/24 10:39 Temperature Pulse Rate 68 Respiratory 18 Rate Blood Pressure 126/92 O2 Sat by Pulse 95 Oximetry Medical Decision Making - Medical Decision Making This is a 49 year old male who presents to the emergency department for abdominal pain. Was pt. sent in by a medical professional or institution? @ -No Did you speak to anyone other than the patient for history? @ -No Did you review nursing and triage notes? @ -Yes, and I agree, it is accurate with regards to the patient's symptoms. Were old charts reviewed? @ -No Differential Diagnosis? @ -Differential Abdominal Pain Men: Appendicitis, cholecystitis, diverticulosis, ischemic bowel, pancreatitis, h epatitis, UTI, gastroenteritis, AAA, incarcerated hernia, bowel obstruction, constipation, inflammatory bowel, hepatitis, peptic ulcer disease, splenic infarction, perforated viscus, testicular torsion, this is not meant to be an all-inclusive list EKG interpreted by me (3pts min.)? @ -EKG interpreted by me demonstrating the following: Sinus rhythm. Ventricular rate 73 bpm, NE interval 143 ms, QRS duration 86 ms, QTc 401 ms. X-rays interpreted by me (1pt min.)? @ -Not obtained CT interpreted by me (1pt min.)? @ -Not obtained U/S interpreted by me (1pt. min.)? @ -Gallbladder ultrasound obtained. My interpretation identifies cholelithiasis. What testing was considered but not performed? (CT, X-rays, U/S, labs)? Why? @ -None What meds were considered but not given? Why? @ -None Did you discuss the management of the patient with other professionals? @ -No Did you reconcile home meds? @ -No Was smoking cessation discussed for >3mins.? @ -No Was critical care preformed (if so, how long)? @ -No Were there social determinants of health that impacted care today? How? (Homelessness, low income, unemployed, alcoholism, drug addiction, transportation, low edu. Level, literacy, decrease access to med. care, penitentiary, rehab)? @ -No Was there de-escalation of care discussed even if they declined? (Discuss DNR or withdrawal of care, Hospice)? @ -No What co-morbidities impacted this encounter? (DM, HTN, Smoking, COPD, CAD, Cancer, CVA, Hep., AIDS, mental health diagnosis, sleep apnea, morbid obesity)? @ -Fibromyalgia Was patient admitted / discharged? @ -Discharged. Lab work demonstrates mild leukocytosis with a white blood cell count of 10.38. AST elevated at 106 and ALT elevated at 149. Bilirubin and alkaline phosphatase within normal limits. These values were hemolyzed. Patient also states that some of the medication he is on for his fibromyalgia can lead to lab work irregularities, which is a potential cause of this. Gallbladder ultrasound obtained demonstrating cholelithiasis without acute cholecystitis. There is no sign of choledocholithiasis or other signs of biliary obstruction to contribute to elevated LFTs. Symptoms well controlled in the emergency department he was tolerating oral intake. Toradol and Zofran prescribed for symptomatic management. Information for general surgery follow- up provided. He is advised to contact them for a follow-up appointment. Advised a bland and low-fat diet for the meantime to reduce the risk of symptom recurrence. Patient discharged home in stable condition. Case discussed with ED attending Dr. Brennan. Return precautions reviewed in depth, the patient is instructed to return to the emergency department with any new, worsening, or concerning symptoms. Patient verbalized understanding. Undiagnosed new problem with uncertain prognosis? @ -None Drug Therapy requiring intensive monitoring for toxicity (Heparin, Nitro, Insulin, Cardizem)? @ -None Were any procedures done? @ -None Diagnosis/symptom? @ -Biliary colic, cholelithiasis Acute, or Chronic, or Acute on Chronic? @ -Acute Uncomplicated (without systemic symptoms) or Complicated (systemic symptoms)? @ -Uncomplicated Side effects of treatment? @ -None Exacerbation, Progression, or Severe Exacerbation] @ -Not applicable Poses a threat to life or bodily function? @ -No - Lab Data Result diagrams: 12/09/24 07:41 12/09/24 07:41 Lab Results 12/09/24 12/09/24 12/09/24 Range/Units 07:41 07:41 07:41 WBC 10.38 H (4.50-10.00) 10*3/uL RBC 4.81 (4.40-5.60) 10*6/uL Hgb 14.3 (13.0-17.0) g/dL Hct 41.1 (39.6-50.0) % MCV 85.4 (80.0-97.0) fL MCH 29.7 (27.0-32.0) pg MCHC 34.8 (32.0-37.0) g/dL Plt Count 236 (140-440) 10*3/uL MPV 11.0 (9.5-12.2) fL Immature Gran % (Auto) 0.3 % Neutrophils % 77.1 % Lymphocytes % 13.9 % Monocytes % 7.1 % Eosinophils % 1.2 % Basophils % 0.4 % Immature Gran # 0.03 (0.00-0.04) 10*3/uL Neutrophils # 8.01 H (1.80-7.70) 10*3/uL Lymphocytes # 1.44 (0.90-5.00) 10*3/uL Monocytes # 0.74 (0.20-1.00) 10*3/uL Eosinophils # 0.12 (0.04-0.35) 10*3/uL Basophils # 0.04 (0.00-0.10) 10*3/uL Sodium 140 (137-145) mmol/L Potassium 4.2 (3.5-5.1) mmol/L Chloride 108 H (98-107) mmol/L Carbon Dioxide 24 (22-30) mmol/L Anion Gap 8 mmol/L BUN 5 L (9-20) mg/dL Creatinine 0.74 (0.66-1.25) mg/dL Est GFR (CKD-EPI)AfAm >90 (>60 ml/min/1.73 sqM) Est GFR (CKD-EPI)NonAf >90 (>60 ml/min/1.73 sqM) Glucose 90 (74-99) mg/dL Plasma Lactic Acid Magno 1.7 (0.7-2.0) mmol/L Calcium 8.8 (8.4-10.2) mg/dL Total Bilirubin 1.1 (0.2-1.3) mg/dL AST 106 H (17-59) U/L ALT 149 H (4-49) U/L Alkaline Phosphatase 66 (38-126) U/L Total Protein 6.2 L (6.3-8.2) g/dL Albumin 3.9 (3.5-5.0) g/dL Amylase 49 (30-110) U/L Lipase 76 (23-300) U/L - Radiology Data Radiology results: report reviewed, image reviewed Disposition Clinical Impression: Gallstones, Biliary colic Disposition: HOME SELF-CARE Instructions (If sedation given, give patient instructions): Biliary Colic (ED), Gallstones (ED), Low Fat Diet (ED) Additional Instructions: Return to the emergency department with any new, worsening, or concerning symptoms. Take the Toradol with Tylenol as needed for pain relief. If you choose to take the Toradol, do not take any other anti-inflammatories such as ibuprofen, take one or the other. Take the Zofran up to every 8 hours as needed for nausea and vomiting. Follow a bland and low-fat diet for the meantime to reduce the risk of symptom recurrence. Contact the general surgery office listed below first thing Wednesday morning. Let them know that you were seen in the emergency department for abdominal pain and found to have gallstones. They will schedule you for a follow-up appointment. Follow up with your primary care provider in 1-2 days. Prescriptions: Ketorolac [Toradol] 10 mg PO Q6HR PRN #15 tab PRN Reason: Pain Ondansetron Odt [Zofran Odt] 4 mg PO Q8HR PRN #20 tab PRN Reason: Nausea And Vomiting Is patient prescribed a controlled substance at d/c from ED?: No Referrals: None,Stated [Primary Care Provider] - 1-2 days Low Tompkins MD [STAFF PHYSICIAN] - 1-2 days Peter Beasley DO [Doctor of Osteopathic Medicine] - 1-2 days Time of Disposition: 10:18
[2024-12-09 08:04] LABS: ALT 149 U/L (4-49); African American GFR (CKD) >90 (>60 ml/min/1.73 sqM); Amylase 49 U/L (30-110); Anion Gap 8 mmol/L; Blood Urea Nitrogen 5 mg/dL (9-20); Calcium 8.8 mg/dL (8.4-10.2); Carbon Dioxide 24 mmol/L (22-30); Chloride 108 mmol/L (98-107); Glucose 90 mg/dL (74-99); Lipase 76 U/L (23-300); Non-African American GFR(CKD) >90 (>60 ml/min/1.73 sqM); Sodium 140 mmol/L (137-145)
[2024-12-09 08:08] LABS: AST 106 U/L (17-59); Albumin 3.9 g/dL (3.5-5.0); Alkaline Phosphatase 66 U/L (38-126); Potassium 4.2 mmol/L (3.5-5.1); Total Bilirubin 1.1 mg/dL (0.2-1.3); Total Protein 6.2 g/dL (6.3-8.2)
--- NOTE | 2024-12-09 08:59 | US ---
EXAMINATION TYPE: US gallbladder DATE OF EXAM: 12/09/2024 COMPARISON: NONE CLINICAL INDICATION: Male, 49 years old with history of RUQ pain; RUQ that radiates to the back TECHNIQUE: Grayscale and color Doppler imaging of the right upper quadrant was performed. FINDINGS: EXAM MEASUREMENTS: Liver Length: 16.2 cm Gallbladder Wall: 0.2 cm CBD: 0.5 cm Right Kidney: 9.0 x 4.6 x 4.8 cm Pancreas: Echogenic in appearance, head and tail obscured by overlying bowel gas Liver: wnl Gallbladder: Multiple mobile stones Evidence for sonographic Doyle's sign: neg CBD: wnl Right Kidney: No hydronephrosis or masses seen Echogenic appearance of the pancreas. Liver is unremarkable without focal lesion or surface nodularit y to suggest cirrhosis. Multiple mobile gallstones identified. No wall thickening or surrounding flui d. Negative sonographic Doyle's sign. Common bile duct is within normal limits. Right kidney demonst rate no hydronephrosis, solid mass or shadowing calculus. IMPRESSION: 1. No ultrasound evidence for acute process. 2. Cholelithiasis without ultrasound evidence for acute cholecystitis. [facility], , 12/09/2024 8:57 AM
[2024-12-09] MEDS: HYDROmorphone 2 MG/ML 1 ML SYRINGE IVP STA (09:31)
[2024-12-09] MEDS: KETOROLAC 15 MG/ML 1 ML VIAL IVP STA (09:31)
[2024-12-09] MEDS: traMADol 50 MG STARTER PACK 3 TAB BTL PO STA (10:36)
[2024-12-09] MEDS: ONDANSETRON 4 MG ODT STARTER PACK 2 TAB BTL PO STA (10:36)
[2024-12-09 10:41] VITALS: BP 126/92; PULSE 68; RESP 18
== END 2024-12-09 11:01 | disposition home or self-care (01) ==
LOC: EC 07:17
DX: K80.70 Calculus of gallbladder and bile duct without cholecystitis without obstruction (principal); M79.7 Fibromyalgia; F17.290 Nicotine dependence, other tobacco product, uncomplicated; Z88.8 Allergy status to other drugs, medicaments and biological substances
CPT/HCPCS: 36415; 93005; 80053; 82150; 83605; 83690; 85025; 76705; 99284; 96374; 96375 ×2; 96376; 96361; J1171 ×2; J2405; J1885; S0119

== ENCOUNTER → 2024-12-25 | Day surgery (SDC) | payer OTHER ==
[2024-12-21 11:09] VITALS: BMI 28.3
[~2024-12-25] MED LIST changes: +ACETAMINOPHEN TAB 325 MG TAB PO SCH; +GLYCOPYRROLATE 0.2 MG/ML 2 ML VIAL ONE; +IBUPROFEN 600 MG TAB PO SCH; +KETAMINE HCL IN 0.9 % NACL 50 MG/5 ML SYRINGE ONE; +LIDOCAINE 1% (10MG/ML) FOR IV START INTRADERMA PRN; +LIDOCAINE 4% LTA KIT (4 ML) TOPICAL ONE; +MIDAZOLAM 2 MG/2 ML VIAL IV PRN; +MIDAZOLAM 2 MG/2 ML VIAL ONE; +NEOSTIGMINE 1 MG/ML 10 ML VIAL ONE; +PHENYLEPHRINE-0.9% NACL SYG 1,000 MCG/10 ML SYRINGE ONE; +ROCURONIUM 10 MG/ML (5 ML VIAL) IV ONE; +SUCCINYLCHOLINE CHLORIDE 200 MG/10 ML VIAL IV ONE; +fentaNYL (PF) 50 MCG/ML 2 ML AMP IVP PRN; +fentaNYL (PF) 50 MCG/ML 2 ML AMP ONE
[2024-12-25] MEDS: IV FLUID CONTINUATION 1,000 ML IV ONE (11:39)
[2024-12-25] MEDS: ACETAMINOPHEN TAB 500 MG TAB PO PRN (11:43)
[2024-12-25] MEDS: ONDANSETRON 4 MG/2 ML VIAL IVP ONE (11:43)
[2024-12-25] MEDS: DEXAMETHASONE SOD PHOSPHATE 4 MG/ML 1 ML VIAL IV ONE (11:43)
[2024-12-25] MEDS: LACTATED RINGERS 1,000 ML IV SCH (11:43)
[2024-12-25] MEDS: HEPARIN SODIUM,PORCINE 5,000 UNIT/ML 1 ML VIAL SQ PRN (11:44)
[2024-12-25] MEDS: ceFAZolin 2 GM in DEXTROSE 5% IN WATER 50 ML IVPB PRN (13:18)
[2024-12-25] MEDS: BUPIVACAINE (PF) 0.25% 30 ML VIAL SQ ONE ×2 (13:46→14:22)
--- NOTE | 2024-12-25 14:40 | P.OP ---
Date of Procedure: 12/25/24 Procedure(s) Performed: PREOPERATIVE DIAGNOSIS: Chronic cholecystitis POSTOPERATIVE DIAGNOSIS: Same PROCEDURE: Laparoscopic cholecystectomy SURGEON: Collin EBL: Minimal see anesthesia record ANESTHESIA: Gen. COMPLICATIONS: None OPERATIVE PROCEDURE: The patient was brought and placed on the operating room table in the supine position. The patient was placed under general anesthesia at that time. The abdomen was prepped and draped in the usual sterile fashion. A small vertical infraumbilical incision was made. The fascia was grasped with the Joy forceps. The fascia was retracted anteriorly. The Veress needle was advanced into the peritoneal cavity. The saline drop test was normal. Insufflation took place up to 15 mmHg. A 5 mm optical trocar was advanced and the peritoneal cavity. 2 additional 5 mm trochars were placed in the right upper quadrant under direct visualization. A 12 mm trocar was advanced into the epigastric incision site. The gallbladder was intrahepatic. The gallbladder had thickened wall with some edema in the wall of the gallbladder. The gallbladder was retracted superiorly and laterally. The peritoneum overlying the infundibulum was bluntly dissected. The patient's cystic duct was visualized. The junction between the cystic duct common and hepatic duct was identified. The critical view of safety was achieved after blunt dissection. The cystic duct was then divided after placement of 3 12 mm clips on the patient's side and one on the specimen side. The cystic artery was identified and clipped as well. A small vessel was seen along the gallbladder fossa and clipped as well. The gallbladder was then removed from the liver bed using electrocautery. The gallbladder was then removed from the epigastric trocar site with an Endo Catch bag. The gallbladder fossa was irrigated with saline. There was no evidence of any bleeding or biliary drainage seen. The fascia at the 12 millimeter site was closed using a Deven-Malena 0 Vicryl stitch. I did inspect the patient's pelvis after placing him in Trendelenburg. There was no visible inguinal hernia bilaterally noted. The trochars were then removed. The skin at all 4 sites was closed using a 4-0 Monocryl stitch. Skin glue was utilized on the incision sites. At the end of this procedure the sponge and needle counts were correct. DISPOSITION: Stable to the recovery room
[2024-12-25 14:54] VITALS: RESP 16; TEMP 98.1
[2024-12-25] MEDS: HYDROmorphone 0.5 MG/0.5 ML SYRINGE IVP PRN (15:43)
[2024-12-25] MEDS: LACTATED RINGERS 1,000 ML IV ONE (16:09)
[2024-12-25 16:29] VITALS: BP 117/66; PULSE 78
== END ==
LOC: OR 10:46
PROVIDERS: ATTEND Surgery
DX: K80.10 Calculus of gallbladder with chronic cholecystitis without obstruction (principal); F17.210 Nicotine dependence, cigarettes, uncomplicated
CPT/HCPCS: 88304; 47562; J2250; J0330; J1644; J1100; J2710; J0690; J2405; J2003; J3010; J2704; J1171; J2371; J0665; J1596